=== PATIENT | male | born 1990 | race Caucasian/White ===

== ENCOUNTER 2020-12-11 12:27 | Emergency (ER) | payer MEDICAID, SELFPAY ==
--- NOTE | ~2020-12-11 | CT_ITS ---
EXAMINATION: CT BRAIN AND CT CERVICAL SPINE WITHOUT CONTRAST. CLINICAL INFORMATION: Head injury, neck pain. COMPARISON: None TECHNIQUE: 5 mm thin axial and reformatted 2 mm thin sagittal and coronal images of brain were obtained. Subsequently axial 3 mm thin and reformatted 2 mm thin sagittal and coronal images of cervical spine were obtained. DLP 1208 FINDINGS: BRAIN: There is no acute intra-axial, extra-axial bleed, masses or midline shift. There is no acute infarct in evolution. The lateral ventricles are symmetrical in size and configuration without enlargement. The alvarenga to white matter differentiation is maintained normal. Bone windows reveal no calvarial abnormality. There is no scalp soft tissue abnormality. There is minimal mucoperiosteal thickening left frontal and and posterior ethmoidal sinus. CERVICAL SPINE: There is mild straightening of cervical lordosis. The vertebral heights, alignment and disc heights are normal. No visible acute fracture, dislocation or subluxation seen. The craniovertebral junction and the C1-C2 alignment is normal. There erosive changes with spurring involving right C4-C5 facet joint likely inflammatory or infectious arthritis. Rest of the facet joints are unremarkable. No abnormal soft tissue swelling seen. Visualized bilateral thyroid lobes, submandibular gland and partially visualized parotid glands are unremarkable. The prevertebral and paravertebral soft tissues appear normal. The right lung apex is unremarkable. CT/CT cervical spine wo con IMPRESSION: No acute intracranial process seen. There is no acute fracture, dislocation or subluxation cervical spine. Abnormal right C4-C5 facet joint question inflammatory or infectious arthritis.
--- NOTE | ~2020-12-11 | CT_ITS ---
EXAMINATION: CT BRAIN AND CT CERVICAL SPINE WITHOUT CONTRAST. CLINICAL INFORMATION: Head injury, neck pain. COMPARISON: None TECHNIQUE: 5 mm thin axial and reformatted 2 mm thin sagittal and coronal images of brain were obtained. Subsequently axial 3 mm thin and reformatted 2 mm thin sagittal and coronal images of cervical spine were obtained. DLP 1208 FINDINGS: BRAIN: There is no acute intra-axial, extra-axial bleed, masses or midline shift. There is no acute infarct in evolution. The lateral ventricles are symmetrical in size and configuration without enlargement. The alvarenga to white matter differentiation is maintained normal. Bone windows reveal no calvarial abnormality. There is no scalp soft tissue abnormality. There is minimal mucoperiosteal thickening left frontal and and posterior ethmoidal sinus. CERVICAL SPINE: There is mild straightening of cervical lordosis. The vertebral heights, alignment and disc heights are normal. No visible acute fracture, dislocation or subluxation seen. The craniovertebral junction and the C1-C2 alignment is normal. There erosive changes with spurring involving right C4-C5 facet joint likely inflammatory or infectious arthritis. Rest of the facet joints are unremarkable. No abnormal soft tissue swelling seen. Visualized bilateral thyroid lobes, submandibular gland and partially visualized parotid glands are unremarkable. The prevertebral and paravertebral soft tissues appear normal. The right lung apex is unremarkable. CT/CT head/brain wo con IMPRESSION: No acute intracranial process seen. There is no acute fracture, dislocation or subluxation cervical spine. Abnormal right C4-C5 facet joint question inflammatory or infectious arthritis.
[2020-12-11 12:30] VITALS: BP 121/84; PULSE 77; RESP 18; TEMP 36.5; O2SAT 96; BMI 27.7
--- NOTE | 2020-12-11 12:48 | ED.HEATRA ---
HPI - Head Injury General Chief complaint: Head Injury Stated complaint: fall/ head injury Time Seen by Provider: 12/11/20 12:42 Source: patient Mode of arrival: ambulatory Limitations: no limitations History of Present Illness HPI Narrative: 30 yo male with past medical history of IVDA abuse, hepatitis C here with complaints of JO, photophobia, difficulty concentrating, neck pain s/p injury 2 days ago. Patient tells me he was walking up the stairs and fell backwards down approximately 2 steps hitting the back of his head. Positive loss of consciousness. Since then he has had persistent headaches, photophobia, difficulty concentrating with some neck pain. No numbness, tingling, weakness. No chest, back or abdominal pain. No blood thinners. History of multiple concussions from sports related injuries. Related Data Allergies Allergy/AdvReac Type Severity Reaction Status Date / Time No Known Allergies Allergy Verified 12/11/20 12:34 [No Known Allergies*] Review of Systems Review of Systems: Yes all other systems are reviewed and are negative Constitutional: Constitutional: Reports no additional constitutional complaints, Denies body ache(s), Denies chills, Denies fever(s), Reports headache(s) and Denies weakness Eyes: Eyes: Reports no additional eye complaints, Denies change in vision and Reports photophobia ENT: Reports system reviewed and no additional complaints, except as documented, Denies dizziness, Reports headache(s), Denies nasal congestion, Denies nasal discharge and Reports neck pain Cardiovascular: Cardiovascular: Reports no additional cardiovascular complaints, Denies chest pain, Denies leg edema and Denies dyspnea Respiratory: Respiratory: Reports no additional respiratory complaints, Denies cough and Denies dyspnea Gastrointestinal: Gastrointestinal: Reports no additional gastrointestinal complaints, Denies abdominal pain, Denies diarrhea, Denies nausea and Denies vomiting Genitourinary: Genitourinary: Denies urinary incontinence Musculoskeletal: Musculoskeletal: Reports no additional musculoskeletal complaints, Denies back pain, Denies arthralgias, Denies joint swelling, Reports neck pain, Denies numbness and Denies tingling Integumentary/Breasts: Skin/Breast: Reports system reviewed and no additional complaints, except as docu and Denies rash Neurologic: Reports system reviewed and no additional complaints, except as documented, Denies Abnormal speech present, Denies dizziness, Reports headache(s), Denies numbness, Denies tingling and Denies weakness PMF Past Medical History Attestation statement: The following information was validated with the patient. Source: old records reviewed and nursing notes reviewed Medical History (Updated 12/11/20 @ 14:00 by Flores Walton NP) Hepatitis C Heroin abuse Social History Social History Advance Directives: No Advance Directives Information Provided: No Physical Exam Vital Signs: Vital Signs: Last Vital Signs Temp 97.7 F 12/11/20 12:30 Pulse 77 12/11/20 12:30 Resp 18 12/11/20 12:30 BP 121/84 12/11/20 12:30 Pulse Ox 96 12/11/20 12:30 Body Mass Index 27.7 Const: General: cooperative, healthy appearing, comfortable and no acute distress Orientation/consciousness: patient oriented x3 Limitations: no limitations HENMT: Head: Yes normal to inspection Ears: hearing grossly normal bilaterally and TM's normal bilaterally General nose exam: Normal external nose present Face and sinus: Yes normal facial exam Mouth: Normal oral and palatal mucosa present Throat: Yes posterior oropharynx normal, Yes tonsils normal and Yes uvula midline Eyes: General: appearance normal, both eyes and all related structures Visual Maurice: normal visual maurice by confrontation Alignment and Position: alignment normal Periorbital: periorbital findings normal Eyelids: Yes eyelids normal Conjunctivae: conjunctivae normal Sclerae: sclerae normal Corneas: corneas normal Pupils: Equal, round and reactive pupils present EOM: EOMs intact bilaterally Direct Ophthalmoscopy: photophobia Neck: Other: Mild cervical tenderness with no step-offs or deformities Neck: Yes normal visual inspection, Yes full ROM, Yes no lymphadenopathy and Yes no meningeal signs Chest: Chest palpation & inspection: normal inspection of the chest Resp: Effort & Inspection: normal respiratory effort Auscultation: clear to auscultation bilaterally Cardio: Rate: regular rate Rhythm: regular rhythm Peripheral pulses: Peripheral pulses 2+ throughout GI: Inspection: Yes normal to inspection Palpation (GI): Soft to palpation and nontender Auscultation: normal bowel sounds Back/Spine/Pelvis: Thoracic/Lumbar Spine: thoracic and lumbar spine normal to inspection Skin: General skin exam: no rashes or lesions noted Neuro: General: patient oriented x3, no meningeal signs, no focal motor deficits and normal sensation to monofilament Cranial nerves: Yes CN's II-XII intact bilaterally, Yes Equal, round and reactive pupils present, Yes Bilaterally intact EOM present, Yes Nystagmus not present and Yes Normal facial strength present Cognition (Neuro): normal cognition Speech: No Abnormal speech present Gait exam (Neuro): Normal gait present Motor exam (neuro): 5/5 motor strength present throughout Sensory Exam: Normal double simultaneous stimulation for sensation Coordination: [id number]-jl-[id number] test normal, rdtc-ps-[id number] test normal and tandem gait normal Extrem: General: Yes normal to inspection, Yes no pedal edema and Yes no calf tenderness Course Course Course Narrative: 30-year-old male with past medical history of IV drug abuse, hepatitis-C, multiple concussions in the past here with complaints of generalized headache, photophobia, difficulty concentrating and some neck discomfort after a mechanical fall 2 days ago. Normal neuro exam. Check CT head/cervical spine. 1405-CT shows No acute intracranial process seen. There is no acute fracture, dislocation or subluxation cervical spine. Abnormal right C4-C5 facet joint question inflammatory or infectious arthritis. Will need MRI with contrast to eval further. Discussed with patient. Wants to leave to smoke cigarette. Offered nicotine replacement but declined. Tells me his mom will pick him up and bring him back later. We discussed d/t IVDA this is likely ostoemyelitis of the neck and patient will likely only worsen. He is A&Ox4. Neuro intact. Reviewed worrisome signs/symptoms with patient and to seek care at anytime for this. COmfortable with plan MDM - Head Injury Differential Diagnosis Differential diagnosis: Likely epidural hematoma, closed head injury, subarachnoid hematoma, postconcussion syndrome and concussion with loss of consciousness Medical Records Attestation: I reviewed the patient's medical records. Lab Data Attestation: I reviewed the patient's lab results. Imaging Data CT head/cervical spine: Attestation: I personally reviewed and interpreted this imaging study as follows: Radiologist's impression: No acute intracranial process seen. There is no acute fracture, dislocation or subluxation cervical spine. Abnormal right C4-C5 facet joint question inflammatory or infectious arthritis. Discharge Plan Discharge Clinical Impression: Abnormal CT scan, cervical spine Concussion with loss of consciousness Qualifiers: Encounter type: initial encounter Qualified Code(s): S06.0X9A - Concussion with loss of consciousness of unspecified duration, initial encounter Patient Disposition: Left Against Medical Advice Instructions: Concussion (ED), Against Medical Advice (ED), Septic Arthritis (DC) Additional Instructions: You need to follow-up with your primary care doctor Increase fluids, rest Limit screen time Your CT scan is concerning for septic arthritis in your bones of your neck. You need a MRI to evaluate this further but you declined this. Be made aware this could kill you Referrals: Physician,Unknown [Primary Care Provider] - 2 days Stand Alone Forms: Against Medical Advice Discharge Date/Time: 12/11/20 14:07
== END 2020-12-11 14:07 | disposition left against medical advice (07) ==
PROVIDERS: Emergency Provider Emergency Medicine
DX: S06.0X9A Concussion with loss of consciousness of unspecified duration, initial encounter (principal); W10.9XXA Fall (on) (from) unspecified stairs and steps, initial encounter; R93.7 Abnormal findings on diagnostic imaging of other parts of musculoskeletal system; F11.10 Opioid abuse, uncomplicated; Y93.9 Activity, unspecified; Y92.9 Unspecified place or not applicable; Y99.9 Unspecified external cause status
CPT/HCPCS: 70450; 72125; 99283; 99284

== ENCOUNTER 2020-12-13 18:11 | Emergency (ER) | payer MEDICAID, SELFPAY ==
[2020-12-13 18:25] VITALS: BP 119/79; PULSE 86; RESP 18; TEMP 36.6; O2SAT 96; BMI 27.8
--- NOTE | 2020-12-13 18:32 | PC.NURSE ---
as this nurse was triaging pt was upset having to wait to be seen also wanting an MRI in the ED and not wanting to be admitted like they were planning on this past sunday. pt told mother that she needs to call other primary providers because he does not want to be in the ed to be admitted and he just wants an outpatient MRI- mother attempted to reason with the patient and patient has opted to leave and seek care elsewhere.
== END 2020-12-13 18:34 | disposition left against medical advice (07) ==
PROVIDERS: Emergency Provider Emergency Medicine; PCP Family Medicine
DX: R42 Dizziness and giddiness (principal)
CPT/HCPCS: 99281; 99282

== ENCOUNTER 2020-12-27 16:12 | Outpatient (REF) | payer MEDICAID, SELFPAY ==
--- NOTE | ~2020-12-27 | MR_ITS ---
EXAMINATION: MR CERVICAL SPINE WITHOUT CONTRAST CLINICAL INFORMATION: Arthropathy of facet joint. Neck pain and previous infection 1 and 1/2 weeks ago. COMPARISON: CT dated 12/11/2020. TECHNIQUE: MRI of the cervical spine was obtained using routine sequences without contrast. FINDINGS: There is abnormal edema in the right C4-C5 articular processes with erosive changes along the margins of the facet joint with an associated facet joint effusion. Mild edema is present in the adjacent deep surrounding posterior right paraspinal soft tissues. No associated abnormal fluid collection is seen. There is mild edema in the right posterolateral endplates at C4-C5 as well. Wibretfk-mw-huszsl right foraminal narrowing noted at this level. No central canal stenosis. Mild disc bulge evident. The remainder of the marrow signal is homogeneous. Mild rightward curvature of the cervical spine noted. No abnormal intradiscal signal evident to indicate discitis/osteomyelitis. Mild disc bulges visible at the C3-C4 and C5-C6 levels. No focal disc protrusion is seen. There is no central canal stenosis. No cord signal abnormality or syrinx is seen. The craniovertebral junction appears normal. The imaged portions of the brain are unremarkable. The vertebral artery flow voids are maintained. The lung apices are grossly clear. MR/MR cervical spine wo con IMPRESSION: Imaging findings of a right-sided septic facet joint at the C4-C5 level with reactive marrow and surrounding posterior paraspinal soft tissue edema. No drainable fluid collection. Severe right foraminal narrowing at this level without central canal stenosis.
== END 2020-12-27 16:13 | disposition home or self-care (01) ==
LOC: HO.MRI 16:12
PROVIDERS: PCP Family Medicine; Visit Provider Nurse Practitioner Family
DX: M46.92 Unspecified inflammatory spondylopathy, cervical region (principal)
CPT/HCPCS: 72141

== ENCOUNTER 2021-01-08 11:44 | Inpatient (IN) | payer MEDICAID, SELFPAY ==
--- NOTE | 2021-01-08 11:48 | ED.BACK ---
HPI - Back Pain/Injury General Chief Complaint: General Medical Stated Complaint: sepsis Time Seen by Provider: 01/08/21 11:47 Source: patient Mode of arrival: other (police) Limitations: no limitations History of Present Illness HPI Narrative: patient was arrested yesterday, he states that he has a septic vertebrae from shooting drugs. Patient had an MRI as outpatient that shows septic facet of the neck MD elicited complaint: other (neck pain) Onset (ago): week(s) Timing: constant Severity: moderate Quality: sharp Radiation: none Context: other (active IVDA) Associated symptoms: weakness, chills and other (diaphoresis) Related Data Allergies Allergy/AdvReac Type Severity Reaction Status Date / Time No Known Allergies Allergy Verified 12/13/20 18:25 [No Known Allergies*] Review of Systems Constitutional: Constitutional: Reports no additional constitutional complaints Eyes: Eyes: Reports no additional eye complaints ENT: Denies dizziness Cardiovascular: Cardiovascular: Reports no additional cardiovascular complaints Respiratory: Respiratory: Reports as per HPI Gastrointestinal: Gastrointestinal: Reports no additional gastrointestinal complaints Musculoskeletal: Musculoskeletal: Reports no additional musculoskeletal complaints Integumentary/Breasts: Skin/Breast: Denies rash Neurologic: Reports system reviewed and no additional complaints, except as documented, Denies dizziness and Denies Sensory deficit (Neuro) Psychiatric: Psychiatric: Denies anxiety PMFSH Past Medical History Medical History Hepatitis C Heroin abuse Social History Social History Alcohol intake: current Alcohol intake frequency: a few times a week Alcohol type: beer Patient Tobacco Use Status: Current someday Tobacco user Use of substances other than those prescribed or required for medical reasons: Yes Substance Use Type: Opiates Substance Use Type Other:: on methadone Any prior treatment program specific to substance use: Yes Advance Directives: No Advance Directives Information Provided: Yes Physical Exam Vital Signs: Vital Signs: Last Vital Signs Temp 98.4 F 01/08/21 11:50 Pulse 87 01/08/21 11:50 Resp 18 01/08/21 11:50 BP 135/101 H 01/08/21 11:50 Pulse Ox 98 01/08/21 11:50 Body Mass Index 27.4 Const: Other: Pale diaphoretic male Nutritional Appearance: average body habitus Orientation/consciousness: oriented to person and patient oriented x3 Limitations: no limitations HENMT: Head: Yes normal to inspection Ears: external ears normal General nose exam: Normal external nose present Mouth: Normal oral and palatal mucosa present and oropharynx normal Throat: Yes posterior oropharynx normal Eyes: General: appearance normal, both eyes and all related structures Neck: Other: supple Neck: Yes normal visual inspection Chest: Chest palpation & inspection: normal inspection of the chest Resp: Auscultation: clear to auscultation bilaterally Cardio: Jugular venous distension: no JVD Rate: regular rate Rhythm: regular rhythm Heart sounds: S1 normal heart sound present and S2 normal heart sound present GI: Inspection: Yes normal to inspection Palpation (GI): Soft to palpation, nontender and No hepatosplenomegaly present Auscultation: normal bowel sounds : General: Yes no CVA tenderness Back/Spine/Pelvis: Back: no CVA tenderness Skin: Other: chronic track hutr on arms with no evidence of erythema or induration. Neuro: General: oriented to person and patient oriented x3 Cranial nerves: Yes CN's II-XII intact bilaterally Motor exam (neuro): 5/5 motor strength present throughout Sensory Exam: No Sensory deficit (Neuro) Extrem: General: Yes normal to inspection Psych: Appearance: grossly normal Course Reevaluation(s) Reevaluation #1: Patient with osteo of cervical spine will admit Time: 13:[address] [facility] - Back Pain/Injury Lab Data Result diagrams: 01/08/21 12:19 01/08/21 12:19 Labs: Lab Results 01/08/21 01/08/21 01/08/21 Range/Units 12:19 12:19 12:19 WBC 9.5 (4.8-10.8) X10*3/uL RBC 4.75 (4.60-5.80) X10*6/uL Hgb 15.4 (14.0-18.0) g/dl Hct 45.6 (42-52) % MCV 96.0 (80-98) fL MCH 32.4 (27.0-33.0) pg MCHC 33.8 (31.0-36.0) g/dl RDW 14.8 (11.0-16.0) % Plt Count 264 (160-400) X10*3/uL MPV 10.5 (9.4-12.4) fL Immature Gran % (Auto) 0.4 (0.0-0.4) % Neut % (Auto) 82.1 H (45-73) % Lymph % (Auto) 10.0 L (20-40) % [place] % (Auto) 6.9 (2-11) % Eos % (Auto) 0.2 (0-4) % Baso % (Auto) 0.4 (0-2) % Lymph # (Auto) 1.0 L (1.2-4.9) X10*3/uL [place] # (Auto) 0.7 (0.1-1.2) X10*3/uL Eos # (Auto) 0.0 (0.0-0.4) X10*3/uL Baso # (Auto) 0.0 (0.0-0.2) X10*3/uL Abs Immat Gran (auto) 0.04 H (0.00-0.03) X10*3/uL Absolute Neuts (auto) 7.8 (2.0-8.3) X10*3/uL Absolute Nucleated RBC 0.000 (0.0-0.012) X10*3/uL Nucleated RBC % (auto) 0.0 (0.0-0.2) /100WBC ESR 5 (0-15) MM/HR Sodium 142 (135-145) mmol/L Potassium 4.2 (3.3-5.1) mmol/L Chloride 102 (96-108) mmol/L Carbon Dioxide 27 (22-29) mmol/L Anion Gap 17 (12-20) BUN 5 L (9-16) mg/dL Creatinine 0.76 (0.5-1.4) mg/dL Estim Creat Clear Calc 137.6 Estimated GFR > 60 Random Glucose 111 (60-115) mg/dL Calcium 10.0 (8.4-10.2) mg/dL Total Bilirubin 1.1 H (0.0-1.0) mg/dL Direct Bilirubin 0.6 H (0.0-0.5) mg/dL AST 177 H (5-37) U/L ALT 144 H (0-40) U/L Alkaline Phosphatase 195 H (39-117) U/L C-Reactive Protein 0.41 (< or = 0.50) mg/dL Total Protein 7.7 (6.5-8.0) g/dL Albumin 4.0 (3.5-5.0) g/dL Discharge Plan Discharge Clinical Impression: Osteomyelitis Qualifiers: Osteomyelitis type: acute hematogenous Osteomyelitis location: other site Qualified Code(s): M86.08 - Acute hematogenous osteomyelitis, other sites Patient Disposition: Admitted As Inpatient
[2021-01-08 11:50] VITALS: BP 135/101; PULSE 87; RESP 18; TEMP 36.9; O2SAT 98; BMI 27.4
[2021-01-08 12:28] LABS: MANUAL DIFF FLAG NO
[2021-01-08 12:29] LABS: Basophils Percent Auto 0.4 % (0-2); Eosinophils Percent Auto 0.2 % (0-4); Hematocrit 45.6 % (42-52); Hemoglobin 15.4 g/dl (14.0-18.0); Imm Gran Abs Auto 0.04 X10*3/uL (0.00-0.03); Imm Gran Pct Auto 0.4 % (0.0-0.4); Mean Corpuscular HGB Conc 33.8 g/dl (31.0-36.0); Mean Corpuscular Hemoglobin 32.4 pg (27.0-33.0); Mean Platelet Volume 10.5 fL (9.4-12.4); Monocytes Absolute Auto 0.7 X10*3/uL (0.1-1.2); Monocytes Percent Auto 6.9 % (2-11); Neutrophils Absolute Auto 7.8 X10*3/uL (2.0-8.3); Neutrophils Percent Auto 82.1 % (45-73); Platelet Count 264 X10*3/uL (160-400); Red Blood Count 4.75 X10*6/uL (4.60-5.80); Red Cell Distribution Width 14.8 % (11.0-16.0); White Blood Count 9.5 X10*3/uL (4.8-10.8)
[2021-01-08] MEDS: Piperacillin Sodium/Tazobactam 3.375 GM in 0.9 % Sodium Chloride 50 ML IV (12:39)
[2021-01-08] MEDS: ondansetron HCL 4 MG/2 ML VIAL IVPUSH (12:39)
[2021-01-08] MEDS: 0.9 % Sodium Chloride 1,000 ML 999 ML IVCONT ×2 (12:40→13:15)
[2021-01-08 12:49] LABS: Alanine Aminotransferase 144 U/L (0-40); Alkaline Phosphatase 195 U/L (39-117); Anion Gap 17 (12-20); Aspartate Amino Transferase 177 U/L (5-37); Bilirubin Direct 0.6 mg/dL (0.0-0.5); Bilirubin Total 1.1 mg/dL (0.0-1.0); Blood Urea Nitrogen 5 mg/dL (9-16); C Reactive Protein 0.41 mg/dL (< or = 0.50); Carbon Dioxide 27 mmol/L (22-29); Chloride 102 mmol/L (96-108); Creatinine Clr Calc Pharmacy 137.6; Estimated Glomerular Filt Rate > 60; Glucose Random 111 mg/dL (60-115); Potassium 4.2 mmol/L (3.3-5.1); Sodium 142 mmol/L (135-145); Total Protein 7.7 g/dL (6.5-8.0)
[2021-01-08] MEDS: vancomycin HCL 1,000 MG in 0.9 % Sodium Chloride 250 ML 270 MG IV (13:15)
[2021-01-08 13:16] LABS: Erythrocyte Sedimentation Rate 5 MM/HR (0-15)
[2021-01-08] MEDS: LORazepam 2 MG/ML VIAL 1 MG IVPUSH (13:29)
--- NOTE | 2021-01-08 13:33 | P.HPHOSP_ITS ---
Assessment and Plan (1) Infection of vertebra: Status: Acute 30M presented with neck pain, known septic facet joint septic facet join IV vanco ID eval follow up cultures etoh dependence with withdrawal phenobarb opioid dependence addiction medicine consult HCV outpatient follow up nicotinue dependence nicoderm, smoking cessation History of Present Illness Date of Service: 01/08/21 Chief Complaint: neck pain 30M presented with neck pain. pain has been ongoing for about 1 month since report of falling down stairs. MRI cspine from 12/27/20 showed right-sided septic facet joint at the C4-C5 level. patient also reports subjective fevers, abdominal pain and diarrhea. he is actively using IV heroin and cocaine, drinks about a pint of vodka daily. last drink one day ptp. denies focal neurological defecit, no urinary retnetion or fecal incontinence, no numbness or motor wekaness. Review of Systems Review of Systems: Constitutional: fever, Chills Eyes: denies blurry vision ENT: denies sore throat CVS: denies chest pain Respiratory: Denies dyspnea GI: no abdominal pain : denies dysuria MSK: neck pain Skin: denies rash Neuro: denies specific motor weakness Psych: denies suicidal ideation Endocrine: denies heat/cold intolerance Hematologic: denies easy bleeding Allergy: denies hives [facility] Medical History Hepatitis C Heroin abuse Family history: reviewed and not pertinent Social History Alcohol intake: current Alcohol intake frequency: a few times a week Alcohol type: beer Patient Tobacco Use Status: Current someday Tobacco user Use of substances other than those prescribed or required for medical reasons: Yes Substance Use Type: Opiates Substance Use Type Other:: on methadone Any prior treatment program specific to substance use: Yes Advance Directives: No Advance Directives Information Provided: Yes Meds Allergies Allergy/AdvReac Type Severity Reaction Status Date / Time No Known Allergies Allergy Verified 12/13/20 18:25 [No Known Allergies*] Active Medications: Current Medications Generic Name Dose Route Start Last Admin Trade Name Freq PRN Reason Stop Dose Admin Sodium Chloride 1,000 mls @ 999 mls/hr 01/08/21 12:00 01/08/21 13:15 Ns IVCONT 01/08/21 14:00 999 mls/hr .[id number] MANUEL Administration Home Medications Medication Instructions Recorded Confirmed Last Taken Type methadone [Dolophine] 70 mg DAILY 01/08/21 01/08/21 01/08/21 History Physical Exam Vital Signs and Narrative: Vital Signs: Last Vital Signs Temp 98.4 F 01/08/21 11:50 Pulse 87 01/08/21 11:50 Resp 18 01/08/21 11:50 BP 135/101 H 01/08/21 11:50 Pulse Ox 98 01/08/21 11:50 Body Mass Index 27.4 General: no acute distress HEENT: atraumatic Neck: normal to visual inspection CVS: S1, S2, RRR Resp: CTA bilateral Chest: non tender GI: soft, non tender, non distended : no CVA tenderness Skin: no rashes Extremities: no edema Neuro: Oriented X3, grossly intact Psych: cooperative Results Labs CBC and Chem 7: 01/08/21 12:19 01/08/21 12:19 Labs: Laboratory Results - last 24 hr 01/08/21 01/08/21 01/08/21 12:19 12:19 12:19 MCV 96.0 MCH 32.4 MCHC 33.8 RDW 14.8 Plt Count 264 MPV 10.5 Immature Gran % (Auto) 0.4 Neut % (Auto) 82.1 H Lymph % (Auto) 10.0 L [place] % (Auto) 6.9 Eos % (Auto) 0.2 Baso % (Auto) 0.4 Lymph # (Auto) 1.0 L [place] # (Auto) 0.7 Eos # (Auto) 0.0 Baso # (Auto) 0.0 Abs Immat Gran (auto) 0.04 H Absolute Neuts (auto) 7.8 Absolute Nucleated RBC 0.000 Nucleated RBC % (auto) 0.0 ESR 5 Anion Gap 17 Estim Creat Clear Calc 137.6 Estimated GFR > 60 Random Glucose 111 Calcium 10.0 Total Bilirubin 1.1 H Direct Bilirubin 0.6 H AST 177 H ALT 144 H Alkaline Phosphatase 195 H C-Reactive Protein 0.41 Total Protein 7.7 Albumin 4.0 Quality Stroke Does the patient have a stroke diagnosis?: No VTE Prior VTE?: No VTE Risk Level:: Medical - moderate - high VTE Device Contraindication: Treatment Not Indicated VTE Drug Contraindication: N/A - Med Ordered
[2021-01-08] MEDS: Nicotine 21 MG PATCH.TD24 TRANSDERMA (14:01)
[2021-01-08] MEDS: PHENobarbitaL sodium 130 MG/ML VIAL 204 MG IM (14:01)
[2021-01-08] MEDS: vancomycin HCL 1,250 MG in 0.9 % Sodium Chloride 250 ML 166.67 MG IV (15:19)
[2021-01-08 15:29] LABS: COVID-19 Test Negative (Negative)
--- NOTE | 2021-01-08 15:33 | MHC.RECOVSUP ---
Recovery Support note: Patient is a 30 year old Beninese speaking male who presented to [facility] ED in custody reporting nausea, vomiting and abdominal pain. Patient reports daily alcohol, heroin and cocaine use. This development writer met with patient to discuss recovery. Patient reports having 7 months of sobriety last year and that he hopes to get back into recovery. Patient reports his brother is in a residential program and he hopes to get into the same one after his court date. Patient is currently on methadone through [facility]. He reports he got his dose today. ED staff unable to verify dose at this time. Dose will be verified tomorrow when clinic is open. Patient reports no questions or concerns at this time. This development writer will follow up with patient tomorrow. Discussed case with patient's RN and Larissa Alaniz NP.
[2021-01-08 16:00] VITALS: BP 133/87; PULSE 68; RESP 16; TEMP 36.4; O2SAT 95
[2021-01-08] MEDS: PHENobarbitaL sodium 130 MG/ML VIAL 153 MG IM ×2 (17:33→20:09)
[2021-01-08] MEDS: Enoxaparin Sodium 40 MG/0.4 ML SYRINGE SUBCUT (17:34)
[2021-01-08 19:21] VITALS: BP 127/80; PULSE 72; RESP 16; TEMP 36.6; O2SAT 97
[2021-01-09] VITALS: BP 140/94; PULSE 72; RESP 16; TEMP 36.4; O2SAT 98
[2021-01-09] MEDS: Acetaminophen 325 MG TABLET 650 MG PO ×2 (00:40→14:35)
[2021-01-09 04:00] VITALS: BP 126/88; PULSE 72; RESP 16; TEMP 36.1; O2SAT 97
[2021-01-09] MEDS: vancomycin HCL 1,250 MG in 0.9 % Sodium Chloride 250 ML 166.67 MG IV ×2 (04:11→14:34)
[2021-01-09 07:05] LABS: Hematocrit 40.1 % (42-52); Hemoglobin 13.5 g/dl (14.0-18.0); Mean Corpuscular HGB Conc 33.7 g/dl (31.0-36.0); Mean Corpuscular Hemoglobin 32.5 pg (27.0-33.0); Mean Corpuscular Volume 96.6 fL (80-98); Mean Platelet Volume 11.6 fL (9.4-12.4); Platelet Count 147 X10*3/uL (160-400); Red Blood Count 4.15 X10*6/uL (4.60-5.80); Red Cell Distribution Width 15.2 % (11.0-16.0); White Blood Count 6.5 X10*3/uL (4.8-10.8)
[2021-01-09 07:35] LABS: Anion Gap 12 (12-20); Carbon Dioxide 27 mmol/L (22-29); Chloride 105 mmol/L (96-108); Creatinine Clr Calc Pharmacy 135.9; Estimated Glomerular Filt Rate > 60; Glucose Random 95 mg/dL (60-115); Potassium 4.1 mmol/L (3.3-5.1); Sodium 140 mmol/L (135-145)
[2021-01-09 07:56] LABS: Blood Urea Nitrogen 9 mg/dL (9-16); Calcium 9.2 mg/dL (8.4-10.2)
[2021-01-09 08:00] VITALS: BP 142/83; PULSE 75; RESP 18; TEMP 36.3; O2SAT 95
[2021-01-09] MEDS: PHENobarbitaL 15 MG TABLET 45 MG PO ×2 (08:13→21:01)
[2021-01-09] MEDS: Nicotine 21 MG PATCH.TD24 TRANSDERMA (08:13)
--- NOTE | 2021-01-09 09:54 | HO.PM.IMPN ---
Subjective Subjective Date of Service: 01/09/21 Interval History: nausea Cardiovascular Cardiovascular: Reports no additional cardiovascular complaints Respiratory Respiratory: Reports no additional respiratory complaints Physical Exam Vital Signs: Vital Signs: Last Vital Signs Temp 97.4 F 01/09/21 08:00 Pulse 75 01/09/21 08:00 Resp 18 01/09/21 08:00 BP 142/83 H 01/09/21 08:00 Pulse Ox 95 01/09/21 08:00 Body Mass Index 27.4 General: AO X 3, no acute distress Resp: CTA bilateral CVS: S1,S2,RRR GI: soft, non tender, non distended Neuro: motor grossly intact Psych: appropriate affect Objective Data Current Medications Generic Name Dose Route Start Last Admin Trade Name Freq PRN Reason Stop Dose Admin Acetaminophen 650 mg 01/08/21 13:39 01/09/21 00:40 Acetaminophen 325 Mg Tablet PO 650 mg Q6H PRN Administration Pain, Mild (Pain Scale 1-3) Enoxaparin Sodium 40 mg 01/08/21 18:00 01/08/21 17:34 Enoxaparin Sodium 40 Mg/0.4 Ml Syringe SUBCUT 40 mg Q24H MANUEL Administration Vancomycin HCl 1,250 mg/ 250 mls @ 166.667 mls/hr 01/08/21 15:00 01/09/21 06:04 Sodium Chloride IV Infused Q12H [facility] Infusion Medication 1 each 01/09/21 09:00 No Benzodiazepines MISCELLANE DAILY MANUEL Nicotine 21 mg 01/08/21 14:00 01/09/21 08:13 Nicotine 21 Mg Patch.Td24 TRANSDERMA 21 mg DAILY MANUEL Administration Non-Formulary Medication 70 mg 01/09/21 09:00 Methadone PO DAILY [facility] Pharmacy Consult 1 each 01/08/21 13:39 Consult Rx Vancomycin Dosing MISCELLANE DAILY PRN Consult order Phenobarbital 45 mg 01/09/21 09:00 01/09/21 08:13 Phenobarbital 15 Mg Tablet PO 01/10/21 21:01 45 mg BID MANUEL Administration Phenobarbital 15 mg 01/11/21 09:00 Phenobarbital 15 Mg Tablet PO 01/12/21 21:01 BID MANUEL Phenobarbital 15 mg 01/13/21 09:00 Phenobarbital 15 Mg Tablet PO 01/14/21 09:01 DAILY [facility] Labs CBC & Chem 7: 01/09/21 06:37 01/09/21 06:37 Labs: Laboratory Results - last 24 hr 01/08/21 01/08/21 01/08/21 12:19 12:19 12:19 WBC 9.5 RBC 4.75 Hgb 15.4 Hct 45.6 MCV 96.0 MCH 32.4 MCHC 33.8 RDW 14.8 Plt Count 264 MPV 10.5 Immature Gran % (Auto) 0.4 Neut % (Auto) 82.1 H Lymph % (Auto) 10.0 L Ro[place] % (Auto) 6.9 Eos % (Auto) 0.2 Baso % (Auto) 0.4 Lymph # (Auto) 1.0 L Roane # (Auto) 0.7 Eos # (Auto) 0.0 Baso # (Auto) 0.0 Abs Immat Gran (auto) 0.04 H Absolute Neuts (auto) 7.8 Absolute Nucleated RBC 0.000 Nucleated RBC % (auto) 0.0 ESR 5 Sodium 142 Potassium 4.2 Chloride 102 Carbon Dioxide 27 Anion Gap 17 BUN 5 L Creatinine 0.76 Estim Creat Clear Calc 137.6 Estimated GFR > 60 Random Glucose 111 Calcium 10.0 Total Bilirubin 1.1 H Direct Bilirubin 0.6 H AST 177 H ALT 144 H Alkaline Phosphatase 195 H C-Reactive Protein 0.41 Total Protein 7.7 Albumin 4.0 COVID-19 ([facility]) COVID-19 Clin Com 01/08/21 01/09/21 01/09/21 15:09 06:37 06:37 WBC 6.5 RBC 4.15 L Hgb 13.5 L Hct 40.1 L MCV 96.6 MCH 32.5 MCHC 33.7 RDW 15.2 Plt Count 147 L D MPV 11.6 Immature Gran % (Auto) Neut % (Auto) Lymph % (Auto) Roane % (Auto) Eos % (Auto) Baso % (Auto) Lymph # (Auto) Roane # (Auto) Eos # (Auto) Baso # (Auto) Abs Immat Gran (auto) Absolute Neuts (auto) Absolute Nucleated RBC 0.000 Nucleated RBC % (auto) 0.0 ESR Sodium 140 Potassium 4.1 Chloride 105 Carbon Dioxide 27 Anion Gap 12 BUN 9 D Creatinine 0.77 Estim Creat Clear Calc 135.9 Estimated GFR > 60 Random Glucose 95 Calcium 9.2 D Total Bilirubin Direct Bilirubin AST ALT Alkaline Phosphatase C-Reactive Protein Total Protein Albumin COVID-19 ([facility]) Negative COVID-19 Clin Com See Note Quality Stroke Does the patient have a stroke diagnosis?: No VTE Prior VTE?: No VTE Risk Level:: Medical - moderate - high VTE Device Contraindication: Treatment Not Indicated VTE Drug Contraindication: N/A - Med Ordered Assessment and Plan (1) Infection of vertebra: Status: Acute Assessment and Plan: 30M presented with neck pain, known septic facet joint septic facet join continue IV vanco follow up cultures etoh dependence with withdrawal phenobarb opioid dependence addiction medicine consult confirm methadone dose HCV outpatient follow up nicotinue dependence nicoderm, smoking cessation
[2021-01-09 11:59] VITALS: BP 151/97; PULSE 60; RESP 16; TEMP 36.4; O2SAT 96
--- NOTE | 2021-01-09 13:40 | MHC.CM.PN ---
CM MET WITH PT AND HIS WHO WAS AT BEDSIDE. PT REPORTEDLY LIVES AT HOME WITH HIS AND IS ACTIVE WITH [facility]. PT IS INDEPENDENT WITH SELF CARE AND HAS BOTH A CPAP AND HOME O2. THEY REPORT PTS PCP IS ROMIE YAP AND HE HAS A HCP ON FILE. IMM DELIVERED CURRENT DC PLAN IS HOME WITH RESUMPTION OF [facility] HOWEVER THEY HAVE INDICATED PT WOULD BE INTERESTED IN STR IF RECOMMENDED. WILL TRANSPORT
--- NOTE | 2021-01-09 13:43 | MHC.CM.PN ---
PT REPORTS HE LIVES AT HOME WITH HIS MOTHER AND IS INDEPENDENT WITH ALL CARE. PT DENIES THE USE OF DME OR HOME SERVICES. PT IS ACTIVE WITH [facility]. PT COMPLETED A HCP TODAY NAMING HIS MOTHER, OSMAR, HIS AGENT. PT IS CURRENTLY IN POLICE CUSTODY, THEY WILL TRANSPORT HIM AT [place].
[2021-01-09] MEDS: ondansetron HCL 4 MG/2 ML VIAL IVPUSH (14:54)
[2021-01-09 15:48] VITALS: BP 142/88; PULSE 58; RESP 18; TEMP 36.4; O2SAT 96
[2021-01-09] MEDS: PHENobarbitaL 30 MG TABLET PO (17:09)
[2021-01-09] MEDS: Enoxaparin Sodium 40 MG/0.4 ML SYRINGE SUBCUT (17:09)
[2021-01-09 19:12] VITALS: BP 138/96; PULSE 68; RESP 18; TEMP 36.1; O2SAT 98
[2021-01-09] MEDS: Nicotine Polacrilex 2 MG GUM BUCCAL (21:22)
[2021-01-09] MEDS: diphenhydrAMINE HCL 25 MG TABLET PO (22:43)
[2021-01-10] VITALS (7 sets, daily range): BP systolic 120–146; BP diastolic 70–98; PULSE 52–70; RESP 18; TEMP 36–36.5; O2SAT 96–98
[2021-01-10] MEDS: Nicotine Polacrilex 2 MG GUM BUCCAL ×4 (00:02→23:57)
[2021-01-10] MEDS: vancomycin HCL 1,250 MG in 0.9 % Sodium Chloride 250 ML 166.67 MG IV (03:34)
[2021-01-10] MEDS: Nicotine 21 MG PATCH.TD24 TRANSDERMA (08:25)
[2021-01-10] MEDS: PHENobarbitaL 15 MG TABLET 45 MG PO ×2 (08:26→20:01)
--- NOTE | 2021-01-10 09:34 | HO.PM.IMPN ---
Assessment and Plan (1) Infection of vertebra: Status: Acute Assessment and Plan: 30M presented with neck pain, mri from 12/27 reading septic facet joint septic facet joint on MRI discussed with ID, given negative cultures, recent trauma (12/11), ESR 4, CRP 0.41. septic joint/OM highly unlikely will dc anitbiotics, should repeat MRI with contrast in about 2 weeks, monitor for symptoms etoh dependence with withdrawal phenobarb opioid dependence with withdrawal addiction medicine consult methadone HCV outpatient follow up nicotinue dependence nicoderm, smoking cessation Subjective Subjective Date of Service: 01/10/21 Interval History: nausea, diarrhea, cramps Cardiovascular Cardiovascular: Reports no additional cardiovascular complaints Gastrointestinal Gastrointestinal: Reports no additional gastrointestinal complaints Physical Exam Vital Signs: Vital Signs: Last Vital Signs Temp 97.1 F 01/10/21 08:00 Pulse 64 01/10/21 08:00 Resp 18 01/10/21 08:00 BP 120/90 H 01/10/21 08:00 Pulse Ox 98 01/10/21 08:00 Body Mass Index 27.4 General: AO X 3, diaphoretic, anxious Resp: CTA bilateral CVS: S1,S2,RRR GI: soft, non tender, non distended Neuro: motor grossly intact Psych: appropriate affect Objective Data Current Medications Generic Name Dose Route Start Last Admin Trade Name Freq PRN Reason Stop Dose Admin Acetaminophen 650 mg 01/08/21 13:39 01/09/21 14:35 Acetaminophen 325 Mg Tablet PO 650 mg Q6H PRN Administration Pain, Mild (Pain Scale 1-3) Enoxaparin Sodium 40 mg 01/08/21 18:00 01/09/21 17:09 Enoxaparin Sodium 40 Mg/0.4 Ml Syringe SUBCUT 40 mg Q24H MANUEL Administration Medication 1 each 01/09/21 09:00 No Benzodiazepines MISCELLANE DAILY MANU[facility] Methadone HCl 70 mg 01/09/21 10:45 01/10/21 08:26 Methadone Hcl 1 Mg/0.1 Ml Oral.Conc PO 70 mg DAILY [facility] Administration Nicotine 21 mg 01/08/21 14:00 01/10/21 08:25 Nicotine 21 Mg Patch.Td24 TRANSDERMA 21 mg DAILY [facility]UEL Administration Nicotine Polacrilex 2 mg 01/09/21 21:08 01/10/21 00:02 Nicotine Polacrilex 2 Mg Gum BUCCAL 2 mg Q2H PRN Administration nicotine withdrawal Ondansetron HCl 4 mg 01/09/21 14:42 01/09/21 14:54 Ondansetron Hcl 4 Mg/2 Ml Vial IVPUSH 4 mg Q6H PRN Administration nausea Pharmacy Consult 1 each 01/08/21 13:39 Consult Rx Vancomycin Dosing MISCELLANE DAILY PRN Consult order Phenobarbital 45 mg 01/09/21 09:00 01/10/21 08:26 Phenobarbital 15 Mg Tablet PO 01/10/21 21:01 45 mg BID MANUEL Administration Phenobarbital 15 mg 01/11/21 09:00 Phenobarbital 15 Mg Tablet PO 01/12/21 21:01 BID MANEUL Phenobarbital 15 mg 01/13/21 09:00 Phenobarbital 15 Mg Tablet PO 01/14/21 09:01 DAILY [facility] Labs CBC & Chem 7: 01/09/21 06:37 01/09/21 06:37 Microbiology Microbiology Results: Microbiology 01/08/21 12:31 Blood Culture - Preliminary Blood - Venous No growth after 24 hours. 01/08/21 12:19 Blood Culture - Preliminary Blood - Venous No growth after 24 hours. Quality Stroke Does the patient have a stroke diagnosis?: No VTE Prior VTE?: No VTE Risk Level:: Medical - moderate - high VTE Device Contraindication: Treatment Not Indicated VTE Drug Contraindication: N/A - Med Ordered
--- NOTE | 2021-01-10 13:36 | MHC.CM.PN ---
PER HOSPITALIST ROUNDS, PATIENT WILL NOT NEED ANTIBIOTICS. PLAN IS TO TREAT FOR WITHDRAWAL SYMPTOMS TODAY AND POSSIBLE DC TOMORROW (727/).
[2021-01-10 14:39] LABS: Vancomycin Trough 14.9 mcg/mL (10.0-20.0)
--- NOTE | 2021-01-10 17:07 | HO.ADDICTCON ---
History of Present Illness Date of Service: 01/10/2021 Chief Complaint: septic facet joint, withdrawal Reason for Consult: OUD Requesting physician: Marcos Ortiz Discussed with referring provider: Yes Sources of Information: patient interviewed and chart reviewed HPI Narrative: Patient is a 30 year old male with OUD and AUD currently medically admitted for concern of infection of vertebra patient seen in room 358--officer in room as patient is currently in custody of [facility] department. patient reports he is currently on methadone 70mg QD and has been at this dose for quite some time. He states that he has also been using approximately 3 bundles of heroin QD and drinking daily. He reports some withdrawal sx including loose stools and nausea. Past Psychiatric History: not reviewed Medical Evaluation Reviewed: Yes Personal & Social History: reports that he lives with his grandmother Review of Systems Constitutional: Reports as per HPI and Reports no additional constitutional complaints Diagnostics Vital Signs (24Hr): Vital Signs - 24 hr 01/09/21 19:12 01/10/21 00:00 01/10/21 03:31 Temperature 96.9 F 96.8 F 96.8 F Pulse Rate 68 52 54 Respiratory Rate 18 18 18 Blood Pressure 138/96 H 141/93 H 139/91 H Pulse Oximetry 98 98 96 01/10/21 08:00 01/10/21 12:00 01/10/21 15:10 Temperature 97.1 F 97.7 F 97 F Pulse Rate 64 64 55 Respiratory Rate 18 18 18 Blood Pressure 120/90 H 120/70 134/80 Pulse Oximetry 98 97 96 Body Mass Index 27.4 Labs Results: 01/09/21 06:37 01/09/21 06:37 Labs: Laboratory Results - last 48 hr 01/09/21 01/09/21 01/10/21 06:37 06:37 13:56 WBC 6.5 RBC 4.15 L Hgb 13.5 L Hct 40.1 L MCV 96.6 MCH 32.5 MCHC 33.7 RDW 15.2 Plt Count 147 L D MPV 11.6 Absolute Nucleated RBC 0.000 Nucleated RBC % (auto) 0.0 Sodium 140 Potassium 4.1 Chloride 105 Carbon Dioxide 27 Anion Gap 12 BUN 9 D Creatinine 0.77 Estim Creat Clear Calc 135.9 Estimated GFR > 60 Random Glucose 95 Calcium 9.2 D Vancomycin Trough 14.9 Mental Status Exam Mental Status Exam Patient Appearance: Appropriate Patient Orientation: Person, Place, Time and Situation Level of Consciousness: Awake, Appropriate and Alert Patient Behavior: Appropriate Mood Description: Calm and Appropriate Affect Description: Appropriate Patient Cognition Impaired: No Ability to Follow Directions: Excellent Speech Pattern: Clear Thought Process: Intact and Goal Oriented Thought Content: positive for Intact Judgement: Fair Medications Medications Current Medications Generic Name Dose Route Start Last Admin Trade Name Freq PRN Reason Stop Dose Admin Acetaminophen 650 mg 01/08/21 13:39 01/09/21 14:35 Acetaminophen 325 Mg Tablet PO 650 mg Q6H PRN Administration Pain, Mild (Pain Scale 1-3) Enoxaparin Sodium 40 mg 01/08/21 18:00 01/09/21 17:09 Enoxaparin Sodium 40 Mg/0.4 Ml Syringe SUBCUT 40 mg Q24H MANUEL Administration Medication 1 each 01/09/21 09:00 No Benzodiazepines MISCELLANE DAILY MANUEL Methadone HCl 70 mg 01/09/21 10:45 01/10/21 08:26 Methadone Hcl 1 Mg/0.1 Ml Oral.Conc PO 70 mg DAILY MANUEL Administration Nicotine 21 mg 01/08/21 14:00 01/10/21 08:25 Nicotine 21 Mg Patch.Td24 TRANSDERMA 21 mg DAILY MANUEL Administration Nicotine Polacrilex 2 mg 01/09/21 21:08 01/10/21 13:27 Nicotine Polacrilex 2 Mg Gum BUCCAL 2 mg Q2H PRN Administration nicotine withdrawal Ondansetron HCl 4 mg 01/09/21 14:42 01/09/21 14:54 Ondansetron Hcl 4 Mg/2 Ml Vial IVPUSH 4 mg Q6H PRN Administration nausea Pharmacy Consult 1 each 01/08/21 13:39 Consult Rx Vancomycin Dosing MISCELLANE DAILY PRN Consult order Phenobarbital 45 mg 01/09/21 09:00 01/10/21 08:26 Phenobarbital 15 Mg Tablet PO 01/10/21 21:01 45 mg BID MANUEL Administration Phenobarbital 15 mg 01/11/21 09:00 Phenobarbital 15 Mg Tablet PO 01/12/21 21:01 BID MANUEL Phenobarbital 15 mg 01/13/21 09:00 Phenobarbital 15 Mg Tablet PO 01/14/21 09:01 DAILY [facility] Allergies Allergies Allergy/AdvReac Type Severity Reaction Status Date / Time No Known Allergies Allergy Verified 01/08/21 16:23 [No Known Allergies*] Assessment & Plan Assessment & Plan (1) Opioid use disorder: Status: Acute Code(s): F11.99 - Opioid use, unspecified with unspecified opioid-induced disorder Recommendations: Considered slight increase to methadone dose, patient to be discharged tomorrow--increase can be discussed with outpatient provider take home narcan at time of discharge 35 mins spent with patient and coordinating care Greater than 50% of the session was spent on counseling and/or coordination of care PMFSH Past Medical History Medical History Hepatitis C Heroin abuse Family History Family history: reviewed and not pertinent Social History Social History Household Members: Family Housing: House Do you presently have visiting nurse or other home services: No Alcohol intake: current Alcohol intake frequency: a few times a week Alcohol type: beer Patient Tobacco Use Status: Current someday Tobacco user Tobacco use type: Cigarette Cigarette Packs Per Day: 1.5 Cigarettes Per Day: 30.0 Years Smoked: 8 Smoked in Last 30 Days: Yes e-Cigarette/Vaping Use: Never Used Patient Interested in Nicotine Replacement: Yes Patient Given Instructions on How to Stop Smoking: No Second Hand Smoke Exposure: Yes Use of substances other than those prescribed or required for medical reasons: Yes Substance Use Type: Crack/Cocaine and Heroin Substance Use Type Other:: on methadone Substance Use Frequency: Daily Last Used Substance: Days (ago) Currently Displaying Signs/Symptoms of Drug Intoxication Withdrawal: No Any prior treatment program specific to substance use: Yes Have you been hit, kicked, punched, or otherwise hurt by someone within the past year? If so, by whom?: No Do you feel safe in your current relationship?: Yes Is there a partner from a previous relationship who is making you feel unsafe now?: No Are you made to feel afraid or neglected: No Advance Directives: No Advance Directives Information Provided: Yes Do you have thoughts of harming others: None Do you have a plan to hurt others: No Plan Recently lost weight without trying: No Eating poorly because of decreased appetite: No Nutrition Risks: No Nutritional Risk Poor oral hygiene: No service: No Current occupational status: unemployed and retired
[2021-01-10] MEDS: Enoxaparin Sodium 40 MG/0.4 ML SYRINGE SUBCUT (17:16)
[2021-01-11] MEDS: diphenhydrAMINE HCL 50 MG/ML VIAL 25 MG IVPUSH (00:56)
[2021-01-11] MEDS: Nicotine Polacrilex 2 MG GUM BUCCAL ×3 (03:00→11:47)
[2021-01-11 03:11] VITALS: BP 116/59; PULSE 56; RESP 18; TEMP 36.6; O2SAT 97
[2021-01-11 07:31] VITALS: BP 151/71; PULSE 59; RESP 17; TEMP 36.3; O2SAT 96
[2021-01-11] MEDS: PHENobarbitaL 15 MG TABLET PO (08:50)
[2021-01-11] MEDS: Nicotine 21 MG PATCH.TD24 TRANSDERMA (08:50)
[2021-01-11] MEDS: ondansetron HCL 4 MG/2 ML VIAL IVPUSH (09:03)
--- NOTE | 2021-01-11 10:13 | P.DS_ITS ---
DS: Providers Provider Date of Service: 01/11/21 Date of admission: 01/08/21 13:41 Primary care physician: Timothy Yen MD Consults: 01/08/21 13:39 Addiction Medicine Routine Consulting Provider: Larissa Alaniz Reason for consultation: opiates Consult to Infectious Diseases Routine Consulting Provider: Marisa Hoffman Reason for consultation: septic facet joint DS: Diagnosis Discharge Diagnosis (1) Opioid use disorder: Status: Acute DS: Medications Discharge Medications Home Medications: Home Medications Medication Instructions Recorded Confirmed methadone 70 mg DAILY 01/08/21 01/08/21 DS: Summary Hospital Course Hospital Course: patient was admitted for suspected septic facet joint complicated by alcohol dependence with withdrawal and opoioid dependence with withdrawal. he was initially started on vancomycin, but after consultation with ID, it was felt that given his low ESR and CRP and negative culture, infection was unlikely, this was likely inflammatory changes from recent fall. should monitor for sympotms off antibiotics and repeat MRI in about one month. for his alcohol withdrawal he received phenobarbital and opioid withdrawal received methadone, symptoms resolved. he will be discharged. Time Spent with Patient Time attestation: Total time spent providing and/or coordinating discharge services: Discharge coordination time: Greater than 30 minutes Quality: Stroke Does the patient have a stroke diagnosis?: No Physical Exam Vital Signs: Vital Signs: Last Vital Signs Temp 97.4 F 01/11/21 07:31 Pulse 59 01/11/21 07:31 Resp 17 01/11/21 07:31 BP 151/71 H 01/11/21 07:31 Pulse Ox 96 01/11/21 07:31 Body Mass Index 27.4 General: AO X 3, no acute distress Resp: CTA bilateral CVS: S1,S2,RRR GI: soft, non tender, non distended Neuro: motor grossly intact Psych: appropriate affect DS: Data Data Completed and Pending Labs on day of discharge: Laboratory Results - last 24 hr 01/10/21 13:56 Vancomycin Trough 14.9 Preliminary micro results at discharge 01/08/21 12:31 Blood Culture - Preliminary Blood - Venous No growth after 48 hours. 01/08/21 12:19 Blood Culture - Preliminary Blood - Venous No growth after 48 hours. Discharge Plan Discharge Patient Disposition: Xfer Other Discharge Diagnosis: withdrawal Referrals: Timothy Yen MD [Primary Care Provider] - 1 Week Discharge Medications: Continued methadone 10 mg/mL Solution 70 mg DAILY RF: 0 Discharge Orders: Discharge Order (Routine); Ordered 01/11/21 Ordered By: Marcos Ortiz Diet: advance to usual diet Activity on Discharge: As tolerated Stand Alone Forms: Patient Portal Discharge page Other Ambulatory Orders: MR cervical spine w con (Routine) Timeframe: 1 Month Facility: [facility] - Location: MRI Ordered By: Marcos Ortiz Care Plan Goals: recovery Health Concerns: inflamtion of facet joint Plan of Treatment: no need for abx as ESR, CRP low, culture negative, if symptoms develop seek medical care, repeat MRI in about month Assessment: see above
--- NOTE | 2021-01-11 10:14 | MHC.CM.PN ---
PATIENT IS DISCHARGED WITH NO NEED FOR SERVICES. HE DOES HAVE RESOURCE INFORMATION FOR HIS CONTINUED HEALTH CARE NEEDS. RN AWARE OF PLAN.
== END 2021-01-11 12:31 | disposition other institution (70) | DRG 347 ==
LOC: HO.ED 13:11 → HO.EDOVER 14:19 → HO.S3 15:29
PROVIDERS: Admitting Provider Internal Medicine; Emergency Provider Emergency Medicine; PCP Family Medicine; Visit Provider Internal Medicine
DX: M53.82 Other specified dorsopathies, cervical region (principal); B19.20 Unspecified viral hepatitis C without hepatic coma; Z20.822 Contact with and (suspected) exposure to COVID-19; F10.239 Alcohol dependence with withdrawal, unspecified; F11.23 Opioid dependence with withdrawal; F17.210 Nicotine dependence, cigarettes, uncomplicated; Z71.6 Tobacco abuse counseling
CPT/HCPCS: 36415; 80048; 80076; 80202; 85025; 85027; 85652; 86140; 87040; 87635; 99285; J1200; J1650; J2060; J2405; J2543; J2560; J3370; Q0163

== ENCOUNTER 2021-02-17 10:58 | Outpatient (REF) | payer OTHER, SELFPAY ==
--- NOTE | ~2021-02-17 | MR_ITS ---
EXAMINATION: MR CERVICAL SPINE WITHOUT AND WITH CONTRAST CLINICAL INFORMATION: Follow-up for possible septic facet joint. COMPARISON: MRI scan of the cervical spine 12/27/2020. CT scan of the cervical spine the 2020. TECHNIQUE: MRI of the cervical spine was obtained using routine sequences with and without contrast. Intravenous contrast: Gadavist 8.5 mL. FINDINGS: VERTEBRAL BODIES AND PARASPINAL SOFT TISSUES: There is a very mild levoscoliosis. Intervertebral disc heights are maintained. The vertebral bodies have normal height and contour. There has been almost complete resolution of the hyperintense STIR signal in the facets in the right C4-C5 facet joint, but there is mild persistent enhancement in the soft tissues posterior to the facet joint. There has been interval decrease in the joint effusion. There are no discrete fluid collections. The previously demonstrated edematous endplate signal at C4-C5 on the right has decreased, but there is no significant enhancement. Marrow signal elsewhere appears homogenous. The paravertebral structures are otherwise unremarkable. CERVICOMEDULLARY JUNCTION AND VISUALIZED POSTERIOR FOSSA: The craniocervical and posterior fossa structures are normal. Accounting for artifact, spinal cord signal appears normal. There is no abnormal enhancement of the spinal cord. SPINAL LEVELS: C2-C3 and C3-C4: The facet joints appear normal. Posterior disc contours are normal. There is no central stenosis or spinal cord compression. The neural foramina are patent bilaterally. C4-C5: There are severe right-sided facet arthropathic changes. There is a small protrusion of the disc on the right with minimal distortion of the ventral thecal sac. There is no spinal cord compression or central stenosis. There is uncovertebral osteophytes and there is moderate to severe narrowing of the right neural foramen. C5-C6 through C7-T1: The facet joints appear normal. Posterior disc contours are normal. There is no central stenosis or spinal cord compression. The neural foramina are patent bilaterally. MR/MR cervical spine wo/w con IMPRESSION: 1. There has been interval decrease in the edema in the facets on the right at C4-C5, and the joint effusion has also decreased compared to prior imaging. There has been interval decrease in the edematous endplate signal on the right at C4-C5. There is persistent mild enhancement in the soft tissues around the joint. 2. At C4-C5 there is severe right facet arthropathy. There is a small disc protrusion posteriorly on the right, and there are uncovertebral osteophytes contributing to moderate to severe narrowing of the right neural foramen. There is no spinal cord compression or central stenosis.
== END 2021-02-17 10:59 | disposition home or self-care (01) ==
LOC: HO.MRI 10:58
PROVIDERS: Visit Provider Family Medicine
DX: M46.92 Unspecified inflammatory spondylopathy, cervical region (principal)
CPT/HCPCS: 72156; A9585